=== PATIENT | female | born 1935 | race Caucasian/White ===

== ENCOUNTER 2022-11-08 16:21 | Outpatient (CLI) | payer MEDICARE, BC | END 2022-11-08 16:22 | disposition home or self-care (01) | LOC: CSHLAB 16:21 | PROVIDERS: ATTEND Student in an Organized Health Care Education/Training Program | DX: Z01.818 Encounter for other preprocedural examination (principal); N81.10 Cystocele, unspecified | CPT/HCPCS: 80048; 80076; 85027; 86850; 86900; 86901; 93005; 93010 ==

== ENCOUNTER 2022-11-10 06:00 | Observation (INO) | payer MEDICARE, BC ==
[2022-11-08 17:52] LABS: Hematocrit 40.2 % (34.9-44.5); Hemoglobin 13.4 g/dL (12.0-15.5); Mean Corpuscular HGB CONC 33.3 g/dL (32.0-36.0); Mean Corpuscular Hemoglobin 32.7 pg (27.0-33.0); Mean Platelet Volume 9.4 fl (7.4-10.4); Platelet Count 223 10x3/uL (150-450); RBC Distribution Width 12.6 % (11.5-14.5); White Blood Cell (WBC) Count 7.2 10x3/uL (3.5-10.5)
[2022-11-08 18:07] LABS: ALT (SGPT) 15 U/L (8-55); AST (SGOT) 25 U/L (5-34); Albumin 4.5 g/dL (3.4-4.8); Alkaline Phosphatase 56 U/L (40-110); Anion Gap 13 mmol/L (10-20); BUN (Urea Nitrogen) 26 mg/dL (9.8-20.1); Bilirubin, Direct 0.2 mg/dL (0.1-0.3); Bilirubin, Total 0.5 mg/dL (0.2-1.2); Calc. Creatinine Clearance 0 mL/min (70-130); Calcium 9.5 mg/dL (7.8-10.44); Carbon Dioxide 30 mmol/L (23-31); Chloride 98 mmol/L (98-107); Estimated GFR 44; Glucose 110 mg/dL (83-110); Potassium 4.1 mmol/L (3.5-5.1); Protein, Total 7.8 g/dL (5.8-8.1); Sodium 137 mmol/L (136-145)
[2022-11-10] MEDS ORDERED: Famotidine/PF 20 mg/2ml Vial ONE (06:29)
[2022-11-10] MEDS ORDERED: CeleCOXIB 100 MG CAP ONE (06:30)
[2022-11-10] MEDS ORDERED: Lidocaine 0.5%/Epinephrine 1:200,000 50 ml Vial ONE (06:39)
[2022-11-10] MEDS ORDERED: Ketorolac Tromethamine 30 MG/ML VIAL ONE (07:17)
[2022-11-10] MEDS ORDERED: Ondansetron PF 4 MG/2 ML Vial ONE (07:17)
[2022-11-10] MEDS ORDERED: Lidocaine 1% PF 5 ML VIAL ONE (07:17)
[2022-11-10] MEDS ORDERED: fentaNYL 50 mcg/mL 1 mL Vial ONE (07:17)
[2022-11-10] MEDS ORDERED: Rocuronium Bromide 10 MG/ML (10ML VIAL) ONE (07:17)
[2022-11-10] MEDS ORDERED: PROPOFOL 20 ML ONE (07:17)
[2022-11-10] MEDS ORDERED: SUGAMMADEX SODIUM 200 MG/2 ML VIAL ONE (07:19)
[2022-11-10] MEDS ORDERED: CEFAZOLIN 2 GM VIAL ONE (07:27)
[2022-11-10] MEDS ORDERED: Glycopyrrolate 0.2 MG/ML 5 ML SYRINGE ONE (07:54)
[2022-11-10] MEDS ORDERED: ePHEDrine Sulfate 50 MG/10 ML VIAL ONE (09:00)
[2022-11-10] MEDS ORDERED: Furosemide 20 MG/2 ML VIAL ONE (09:05)
[2022-11-10] MEDS ORDERED: Ondansetron PF 4 MG/2 ML Vial IVP PRN (09:24)
[2022-11-10] MEDS ORDERED: Simethicone Chewable 80 MG TAB PO PRN (09:24)
[2022-11-10] MEDS ORDERED: Acetaminophen 325 MG TAB PO PRN (09:24)
[2022-11-10] MEDS ORDERED: Promethazine HCl 25 MG/ML VIAL IM PRN (09:24)
[2022-11-10] MEDS ORDERED: Zolpidem Tartrate 5 MG TAB PO PRN (09:24)
[2022-11-10] MEDS ORDERED: Bisacodyl 10 MG SUPP PR PRN (09:24)
[2022-11-10] MEDS ORDERED: Acetaminophen/Codeine 30-300mg Tablet PO PRN ×2 (09:24)
[2022-11-10] MEDS: Sodium Chloride 0.9% 1,000 ML IV SCH (11:40)
[2022-11-10] MEDS: Ketorolac Tromethamine 30 MG/ML VIAL IVP SCH ×2 (14:40→22:21)
[2022-11-10 17:57] VITALS: BMI 25.0
[2022-11-10] MEDS ORDERED: Pramipexole Di-HCl 0.25 MG TAB PO SCH (21:00)
[2022-11-10] MEDS ORDERED: FLUVOXAMINE MALEATE 25 MG PO SCH (21:00)
[2022-11-10] MEDS: Atenolol 25 MG TAB PO SCH (22:24)
[2022-11-10] MEDS: Docusate Calcium (SURFAK) 240 MG CAP PO SCH (22:24)
[2022-11-11] MEDS: Ketorolac Tromethamine 30 MG/ML VIAL IVP SCH (03:16)
[2022-11-11] MEDS: Sodium Chloride 0.9% 1,000 ML IV SCH (03:21)
[2022-11-11 04:22] LABS: Hematocrit 31.8 % (34.9-44.5); Hemoglobin 10.9 g/dL (12.0-15.5); Mean Corpuscular HGB CONC 34.3 g/dL (32.0-36.0); Mean Corpuscular Hemoglobin 33.3 pg (27.0-33.0); Mean Corpuscular Volume 97.2 fl (81.6-98.3); Mean Platelet Volume 9.7 fl (7.4-10.4); Platelet Count 163 10x3/uL (150-450); RBC Distribution Width 12.4 % (11.5-14.5); Red Blood Cell (RBC) Count 3.27 10x6/uL (3.90-5.03); White Blood Cell (WBC) Count 13.4 10x3/uL (3.5-10.5)
[2022-11-11 04:37] LABS: Anion Gap 13 mmol/L (10-20); BUN (Urea Nitrogen) 24 mg/dL (9.8-20.1); Calc. Creatinine Clearance 37 mL/min (70-130); Calcium 7.9 mg/dL (7.8-10.44); Carbon Dioxide 23 mmol/L (23-31); Chloride 100 mmol/L (98-107); Estimated GFR 43; Glucose 108 mg/dL (83-110); Potassium 3.9 mmol/L (3.5-5.1); Sodium 132 mmol/L (136-145)
[2022-11-11] MEDS: Atenolol 25 MG TAB PO SCH (08:57)
[2022-11-11] MEDS ORDERED: Losartan Potassium 50 MG TAB PO SCH (09:00)
[2022-11-11] MEDS ORDERED: Hydrochlorothiazide 25 MG TAB PO SCH (09:00)
[2022-11-11] MEDS: Docusate Calcium (SURFAK) 240 MG CAP PO SCH (09:00)
[2022-11-12 00:58] VITALS: BP 131/55; TEMP 98.5
== END 2022-11-11 21:15 | disposition home or self-care (01) ==
LOC: CSHSDC 06:00 → CSHTELE 11:15 → CSHSDC 14:31 → CSHTELE 14:31
PROVIDERS: ADMIT Student in an Organized Health Care Education/Training Program; ATTEND Student in an Organized Health Care Education/Training Program
PROC: 0ULG7ZZ Occlusion of Vagina, Via Natural or Artificial Opening (ICD-10-PCS; principal; 2022-11-10)
PROC: 0TSD0ZZ Reposition Urethra, Open Approach (ICD-10-PCS; 2022-11-10)
DX: N99.3 Prolapse of vaginal vault after hysterectomy (principal); N39.3 Stress incontinence (female) (male); N39.0 Urinary tract infection, site not specified; Z88.2 Allergy status to sulfonamides; Z88.8 Allergy status to other drugs, medicaments and biological substances; Z88.1 Allergy status to other antibiotic agents
CPT/HCPCS: 57120; 57288; 80048 ×2; 80076; 85027 ×2; 86850; 86900; 86901; 97116; C1781; J3010; Q9968; 36415; J1885; J1940; J2001; J2405; J2550; J2704; J7050; S0028